=== PATIENT | male | born 1955 | race Caucasian/White ===

== ENCOUNTER 2018-01-10 07:42 | Day surgery (SDC) | payer BC ==
[2018-01-08 10:01] VITALS: BMI 31.6
[~2018-01-10 07:42] MED LIST: HYDROmorphone 0.5 MG/0.5 ML SYRINGE IVP PRN; LACTATED RINGERS 1,000 ML IV SCH; LIDOCAINE 1% 20 ML VIAL (10MG/ML) FOR IV START INTRADERMA PRN
[2018-01-10 08:05] VITALS: RESP 16; TEMP 98.9
[2018-01-10] MEDS ORDERED: PROPOFOL 10 MG/ML 20 ML VIAL IV ONE (08:31)
--- NOTE | 2018-01-10 08:38 | P.GSHP ---
History of Present Illness H&P Date: 01/10/18 Chief Complaint: Colon cancer screening Patient here today for follow-up colonoscopy. Last colonoscopy 5 years ago. History of colon polyps and personal history of colon cancer. No bowel complaints. Past Medical History Past Medical History: Hyperlipidemia, Hypertension Additional Past Medical History / Comment(s): hx. colon polyps History of Any Multi-Drug Resistant Organisms: None Reported Past Surgical History: Bowel Resection Additional Past Surgical History / Comment(s): colonoscopies Past Anesthesia/Blood Transfusion Reactions: No Reported Reaction Smoking Status: Never smoker - Past Family History Mother Family Medical History: Cancer Medications and Allergies Home Medications Medication Instructions Recorded Confirmed Type Atorvastatin [Lipitor] 20 mg PO DAILY 01/08/18 01/10/18 History amLODIPine [Norvasc] 5 mg PO DAILY 01/08/18 01/10/18 History Allergies Allergy/AdvReac Type Severity Reaction Status Date / Time No Known Allergies Allergy Verified 01/10/18 08:05 Surgical - Exam Vital Signs Temp Pulse Resp BP Pulse Ox 98.9 F 90 16 181/93 96 01/10/18 08:04 01/10/18 08:04 01/10/18 08:04 01/10/18 08:04 01/10/18 08:04 Physical exam: General: Well-developed, well-nourished HEENT: Normocephalic, sclerae nonicteric Abdomen: Nontender, nondistended Extremities: No edema Neuro: Alert and oriented Assessment and Plan (1) Colon cancer screening Narrative/Plan: Will proceed with colonoscopy at this time. Current Visit: Yes Status: Acute Code(s): Z12.11 - ENCOUNTER FOR SCREENING FOR MALIGNANT NEOPLASM OF COLON SNOMED Code(s): 285888788
--- NOTE | 2018-01-10 08:54 | P.PCN ---
Date of Procedure: 01/10/18 Procedure(s) Performed: PREOPERATIVE DIAGNOSIS: Colon cancer screening POSTOPERATIVE DIAGNOSIS: Mild diverticulosis PROCEDURE: Colonoscopy ANESTHESIA: MAC SURGEON: Sanjay Hermosillo M.D. SPECIMENS: none ENDOSCOPIC PROCEDURE: The patient was placed on the endoscopy table in the left decubitus position. The Olympus colonoscope was inserted into the anus and passed under direct visualization to the base of the cecum. The appendiceal orifice was visualized. From that point the scope was slowly withdrawn inspecting all surfaces carefully. There were no neoplastic inflammatory or polypoid lesions throughout the cecum, ascending, transverse, descending and rectum. There was mild diverticulosis noted in the left colon. The previous colonic resection anastomosis was widely patent. Digital rectal examination was normal. The patient was taken to the recovery room in stable condition per anesthesia guidelines. RECOMMENDATIONS: Increase fiber. Follow-up colonoscopy 5 years.
[2018-01-10 09:06] VITALS: BP 157/95; PULSE 74
== END 2018-01-10 09:32 | disposition home or self-care (01) ==
LOC: ORWHC2ENDO 07:42
PROVIDERS: ATTEND Surgery
DX: Z12.11 Encounter for screening for malignant neoplasm of colon (principal); K57.30 Diverticulosis of large intestine without perforation or abscess without bleeding; Z90.49 Acquired absence of other specified parts of digestive tract; Z98.0 Intestinal bypass and anastomosis status; Z85.038 Personal history of other malignant neoplasm of large intestine; Z86.010 Personal history of colon polyps; E78.5 Hyperlipidemia, unspecified; I10 Essential (primary) hypertension; Z79.899 Other long term (current) drug therapy
CPT/HCPCS: J2704; G0105; 45378

== ENCOUNTER 2022-01-22 10:29 | Inpatient (IN) | payer BC ==
[2022-01-22] MEDS ORDERED: SODIUM CHLORIDE 0.9% 500 ML 500 ML IV STA (11:04)
[2022-01-22] MEDS ORDERED: KETOROLAC 15 MG/ML 1 ML VIAL IVP STA (11:09)
--- NOTE | 2022-01-22 11:09 | ED ---
SOB HPI - General Chief Complaint: Shortness of Breath Stated Complaint: enlarged heart, lung failure Time Seen by Provider: 01/22/22 10:55 Source: patient, family, RN notes reviewed, old records reviewed Mode of arrival: ambulatory Limitations: no limitations - History of Present Illness Initial Comments: This is a well-appearing 66-year-old male that presents to the emergency room with family with complaints of persistent cough. He did test positive for coronavirus on , 01/18, he was placed on a Z-Spencer. Urgent care told him he has an enlarged heart and recommended he come to the emergency room. He denies any chest pain, no nausea vomiting or diarrhea. He states he has a history of hypertension and is on blood pressure medication. He has been vaccinated against coronavirus. MD Complaint: cough -: days(s) (5) Severity scale (1-10): 0 Context: recent URI (covid + 01/18) Treatments Prior to Arrival: other (cristy, sent by urgent care) - Related Data Home Oxygen Therapy: No Home Medications Medication Instructions Recorded Confirmed Atorvastatin [Lipitor] 20 mg PO HS 01/08/18 01/22/22 Albuterol Sulfate [Proair Hfa] 2 puff INHALATION RT-QID PRN 01/22/22 01/22/22 Azithromycin [Zithromax Z Pack] See Taper PO DAILY 01/22/22 01/22/22 Tamsulosin [Flomax] 0.4 mg PO DAILY 01/22/22 01/22/22 amLODIPine [Norvasc] 10 mg PO HS 01/22/22 01/22/22 hydroCHLOROthiazide 25 mg PO DAILY 01/22/22 01/22/22 Allergies Allergy/AdvReac Type Severity Reaction Status Date / Time No Known Allergies Allergy Verified 01/22/22 10:52 Review of Systems ROS Statement: Those systems with pertinent positive or pertinent negative responses have been documented in the HPI. ROS Other: All systems not noted in ROS Statement are negative. Past Medical History Past Medical History: Hyperlipidemia, Hypertension Additional Past Medical History / Comment(s): hx. colon polyps History of Any Multi-Drug Resistant Organisms: None Reported Past Surgical History: Bowel Resection Additional Past Surgical History / Comment(s): colonoscopies Past Anesthesia/Blood Transfusion Reactions: No Reported Reaction Smoking Status: Never smoker Past Alcohol Use History: None Reported Past Drug Use History: None Reported - Past Family History Mother Family Medical History: Cancer General Exam Limitations: no limitations General appearance: alert Head exam: Present: atraumatic Eye exam: Present: normal appearance Neck exam: Absent: tenderness, meningismus Respiratory exam: Present: normal lung sounds bilaterally, rales. Absent: respiratory distress, wheezes, rhonchi, stridor, chest wall tenderness, accessory muscle use, decreased breath sounds Cardiovascular Exam: Present: regular rate, normal rhythm GI/Abdominal exam: Present: soft Extremities exam: Present: normal capillary refill. Absent: pedal edema Neurological exam: Present: alert, oriented X3 Psychiatric exam: Present: normal affect, normal mood Skin exam: Present: warm, dry, normal color. Absent: cyanosis, diaphoretic, petechiae, pallor Course Vital Signs 01/22/22 01/22/22 01/22/22 10:47 10:57 10:58 Temperature 99.8 F H 99 F Pulse Rate 91 86 Respiratory 20 18 18 Rate Blood Pressure 125/61 121/75 O2 Sat by Pulse 91 L 94 L Oximetry 01/22/22 01/22/22 01/22/22 11:37 12:11 12:18 Temperature Pulse Rate 86 78 Respiratory 18 18 Rate Blood Pressure 110/63 108/72 O2 Sat by Pulse 92 L 90 L Oximetry Medical Decision Making - Medical Decision Making Patient presents with persistent cough after tested positive for coronavirus on , January 18. Patient is currently on a Z-Spencer. Chest x-ray shows mild interstitial edema bilaterally versus chronic parenchymal change. There is a more focal left basilar infiltrate and/or atelectasis n oted. Cardiac silhouette size is upper limits of normal. There is leukocytosis 17 with a left shift. BUN and creatinine are elevated likely related to coronavirus. Patient has no history of kidney disease. Patient denies any chest pain or difficulty breathing. Pulse Ox 87% on room air. He was given 2 g Rocephin in the emergency room. He was admitted to the hospital with pneumonia, COVID-19 and hypoxia. He is agreeable to staying in the hospital. Case discussed with Dr. Santos - Lab Data Result diagrams: 01/22/22 11:07 01/22/22 11:07 Lab Results 01/22/22 01/22/22 01/22/22 Range/Units 11:07 11:07 11:07 WBC 17.2 H (3.8-10.6) k/uL RBC 4.65 (4.30-5.90) m/uL Hgb 13.6 (13.0-17.5) gm/dL Hct 39.4 (39.0-53.0) % MCV 84.8 (80.0-100.0) fL MCH 29.3 (25.0-35.0) pg MCHC 34.6 (31.0-37.0) g/dL RDW 12.9 (11.5-15.5) % Plt Count 311 (150-450) k/uL MPV 8.1 Neutrophils % 89 % Lymphocytes % 4 % Monocytes % 5 % Eosinophils % 1 % Basophils % 0 % Neutrophils # 15.2 H (1.3-7.7) k/uL Lymphocytes # 0.7 L (1.0-4.8) k/uL Monocytes # 0.8 (0-1.0) k/uL Eosinophils # 0.2 (0-0.7) k/uL Basophils # 0.0 (0-0.2) k/uL PT 11.4 (9.0-12.0) sec INR 1.1 (<1.2) APTT 26.0 (22.0-30.0) sec Sodium 131 L (137-145) mmol/L Potassium 4.0 (3.5-5.1) mmol/L Chloride 96 L (98-107) mmol/L Carbon Dioxide 21 L (22-30) mmol/L Anion Gap 14 mmol/L BUN 27 H (9-20) mg/dL Creatinine 1.27 H (0.66-1.25) mg/dL Est GFR (CKD-EPI)AfAm 69 (>60 ml/min/1.73 sqM) Est GFR (CKD-EPI)NonAf 59 (>60 ml/min/1.73 sqM) Glucose 152 H (74-99) mg/dL Calcium 9.4 (8.4-10.2) mg/dL Magnesium 2.0 (1.6-2.3) mg/dL Total Bilirubin 0.9 (0.2-1.3) mg/dL AST 19 (17-59) U/L ALT 19 (4-49) U/L Alkaline Phosphatase 88 (38-126) U/L Total Protein 6.5 (6.3-8.2) g/dL Albumin 3.8 (3.5-5.0) g/dL - EKG Data EKG shows normal: sinus rhythm (Ventricular rate 85, AK interval 0.163, QRS 0.87, QTC 0.391; no ST elevation; normal sinus rhythm) Disposition Clinical Impression: COVID-19, Pneumonia, Hypoxia Disposition: ADMITTED IP TO THIS [facility] Decision Date: 01/22/22 Decision Time: 12:54
[2022-01-22] MEDS ORDERED: ACETAMINOPHEN TAB 325 MG TAB PO STA (11:10)
--- NOTE | 2022-01-22 11:30 | XR ---
EXAMINATION TYPE: XR chest 2V DATE OF EXAM: 01/22/2022 COMPARISON: NONE HISTORY: OLIMPIA. TECHNIQUE: Frontal and lateral views of the chest are obtained. FINDINGS: R a reticular increased markings bilaterally with more focal left basilar opacity. No ple ural effusion or pneumothorax seen bilaterally. The cardiac silhouette size is upper limits of normal . The osseous structures are intact. IMPRESSION: Mild interstitial edema present bilaterally versus chronic parenchymal change. More foca l left basilar infiltrate and/or atelectasis is noted. Correlation with old outside x-ray would be be neficial.
[2022-01-22 11:36] LABS: Basophils % (A) 0 %; Eosinophils # (A) 0.2 k/uL (0-0.7); Eosinophils % (A) 1 %; HCT 39.4 % (39.0-53.0); HGB 13.6 gm/dL (13.0-17.5); Lymphocytes # (A) 0.7 k/uL (1.0-4.8); Lymphocytes % (A) 4 %; MCH 29.3 pg (25.0-35.0); MCHC 34.6 g/dL (31.0-37.0); MCV 84.8 fL (80.0-100.0); Mean Platelet Volume 8.1; Monocytes # (A) 0.8 k/uL (0-1.0); Monocytes % (A) 5 %; Neutrophils # (A) 15.2 k/uL (1.3-7.7); Neutrophils % (A) 89 %; Platelet Count 311 k/uL (150-450); RBC 4.65 m/uL (4.30-5.90); RDW 12.9 % (11.5-15.5); WBC 17.2 k/uL (3.8-10.6)
[2022-01-22 11:37] LABS: Albumin 3.8 g/dL (3.5-5.0); Calcium 9.4 mg/dL (8.4-10.2); Total Bilirubin 0.9 mg/dL (0.2-1.3); Total Protein 6.5 g/dL (6.3-8.2)
[2022-01-22 11:46] LABS: INR 1.1 (<1.2); Prothrombin Time 11.4 sec (9.0-12.0)
[2022-01-22] MEDS ORDERED: DEXAMETHASONE SOD PHOSPHATE 10 MG/ML 1 ML VIAL IVP STA (11:50)
[2022-01-22] MEDS ORDERED: ACETAMINOPHEN TAB 325 MG TAB PO PRN (12:55)
[2022-01-22] MEDS ORDERED: NALOXONE 0.4 MG/ML 1 ML VIAL IV PRN (12:55)
[2022-01-22] MEDS ORDERED: ALBUTEROL NEBULIZED 2.5 MG/3 ML INHALATION PRN (12:55)
--- NOTE | 2022-01-22 15:25 | P.CNPUL ---
History of Present Illness Consult date: 01/22/22 Requesting physician: Giovanni Stewart Reason for consult: dyspnea, cough, hypoxemia, pneumonia, abnormal CXR/CT Chief complaint: Coronavirus infection and possible coronavirus pneumonia. History of present illness: Pulmonary consult dated 01/22/2022. 66-year-old male, who presented to the emergency department, sent in by his family doctor, because of cold like symptoms. The patient apparently started not feeling well on . At that time, he tested himself, with a home coronavirus test kit, and apparently tested positive. The patient apparently continued to get worse, and went back into the clinic to be seen, and was directed into the emergency department. He was told that he had an enlarged heart, fluid on the lungs, and possible pneumonia. Currently, he's not receiving any IV fluids. He is receiving oxygen at 3 L. He has a history of hypertension, and hyperlipidemia. He is a lifelong nontobacco user, and has no prior history of any lung disease. He did receive initial Pfizer vaccination, but no booster. He apparently was initially given a Z-Spencer, when he was seen at the clinic. He denies any fever or chills. He denies any chest pain or chest discomfort. He looks relatively comfortable to me. White count 17.2, with a normal hemoglobin, hematocrit, and platelet count. Coagulation studies are normal. Sodium 131, potassium 4, chlorides 96, CO2 21, anion gap 14, BUN 27, and creatinine 1.27. His coronavirus testing here in the hospital was negative. Chest x-ray is not overly impressive, and there may be some mild pulmonary vascular changes. In addition, there may be a minimal left mid lung infiltrate. Review of Systems REVIEW OF SYSTEMS: CONSTITUTIONAL: [Negative.] NEUROLOGIC: [ Negative.] HEENT: Stuffy nose. CARDIAC: [Negative.] PULMONARY: Minimal shortness of breath, and nonproductive cough. GI: [Negative.] : [Negative.] RHEUMATOLOGIC: [ Negative.] IMMUNOLOGIC: [ Negative.] ENDOCRINE: [Negative. ] DERMATOLOGIC: [Negative.] Past Medical History Past Medical History: Hyperlipidemia, Hypertension, Osteoarthritis (OA) Additional Past Medical History / Comment(s): hx. colon polyps History of Any Multi-Drug Resistant Organisms: None Reported Past Surgical History: Bowel Resection Additional Past Surgical History / Comment(s): polyp removal and colonoscopies Past Anesthesia/Blood Transfusion Reactions: No Reported Reaction Past Psychological History: No Psychological Hx Reported Smoking Status: Never smoker Past Alcohol Use History: None Reported Past Drug Use History: None Reported - Past Family History Mother Family Medical History: Cancer Additional Family Medical History / Comment(s): Non Hodgkin Lymphoma then s/p chemo developed heart valve disease and at age 76 Father Family Medical History: No Reported History Additional Family Medical History / Comment(s): history of skin cancer. currently living at age 87 Medications and Allergies Home Medications Medication Instructions Recorded Confirmed Type Atorvastatin [Lipitor] 20 mg PO HS 01/08/18 01/22/22 History Albuterol Sulfate [Proair Hfa] 2 puff INHALATION RT-QID PRN 01/22/22 01/22/22 History Azithromycin [Zithromax Z Pack] See Taper PO DAILY 01/22/22 01/22/22 History Tamsulosin [Flomax] 0.4 mg PO DAILY 01/22/22 01/22/22 History amLODIPine [Norvasc] 10 mg PO HS 01/22/22 01/22/22 History hydroCHLOROthiazide 25 mg PO DAILY 01/22/22 01/22/22 History Allergies Allergy/AdvReac Type Severity Reaction Status Date / Time No Known Allergies Allergy Verified 01/22/22 10:52 Physical Exam Osteopathic Statement: *. No significant issues noted on an osteopathic structural exam other than those noted in the History and Physical/Consult. Vitals: Vital Signs Temp Pulse Pulse Resp BP BP Pulse Ox 01/22/22 14:12 76 18 94 L 01/22/22 14:05 98.3 F 73 18 103/65 93 L 01/22/22 14:00 98.0 F 65 16 110/57 94 L 01/22/22 12:18 90 L 01/22/22 12:11 78 18 108/72 01/22/22 11:37 86 18 110/63 92 L 01/22/22 10:58 18 01/22/22 10:57 99 F 86 18 121/75 94 L 01/22/22 10:47 99.8 F H 91 20 125/61 91 L Intake and Output 01/22/22 01/22/22 01/22/22 06:59 14:59 22:59 Other: Weight 88.451 kg 88.451 kg No acute distress, oriented 3. No use of accessory muscles or conversational dyspnea. Currently on 3 L. HEENT examination is grossly unremarkable. Neck supple. Full range of motion. No adenopathy thyromegaly or neck vein distention. Cardiovascular examination reveals regular rhythm rate. S1-S2 normal. No S3 or S4. No discernible murmur noted. Heart rate is 76 bpm. Lungs reveal mostly clear breath sounds. Minimal scattered rhonchi. No distinct crackles or wheezes. Breath sounds equal bilaterally. 3 L saturation 94%and room air saturation is 90%. Abdomen soft bowel sounds are heard. No masses or tenderness. Extremities are intact. No cyanosis clubbing or edema. Skin is without rash or lesion. Neurologic examination is brief but nonfocal. Results - Laboratory Findings CBC and BMP: 01/22/22 11:07 01/22/22 11:07 PT/INR, D-dimer PT 11.4 sec (9.0-12.0) 01/22/22 11:07 INR 1.1 (<1.2) 01/22/22 11:07 Abnormal lab findings: Abnormal Labs 01/22/22 01/22/22 11:07 11:07 WBC 17.2 H Neutrophils # 15.2 H Lymphocytes # 0.7 L Sodium 131 L Chloride 96 L Carbon Dioxide 21 L BUN 27 H Creatinine 1.27 H Glucose 152 H - Diagnostic Findings Chest x-ray: image reviewed Assessment and Plan Assessment: Shortness of breath, of unclear etiology. Patient tested negative for coronavirus, here at this hospital. He states his home test was positive on , January 18. Possible pneumonia, left midlung. Rule out mild interstitial edema. Mild hyponatremia. History of hyperlipidemia. History of hypertension. Lifelong nontobacco user. Plan: Plan dated 01/22/2022. The patient will have a pro-calcitonin level checked, as well as a N-terminal proBNP. Labs, x-rays, and medications are reviewed. Additional recommendations and suggestions are forthcoming. We will continue to follow the patient and make recommendations along the way. Patient does not appear to be having much in the way of respiratory difficulty or distress. He has no prior history of any lung issues. Time with Patient: Greater than 30
[2022-01-22] MEDS: amLODIPine 10 MG TAB PO SCH (19:34)
[2022-01-22] MEDS: ATORVASTATIN 20 MG TAB PO SCH (19:34)
--- NOTE | 2022-01-23 03:51 | HP ---
HISTORY AND PHYSICAL CHIEF COMPLAINT: Shortness of breath. HISTORY OF PRESENT ILLNESS: This 66-year-old gentleman with a past medical history of multiple history of multiple medical issues, hypertension, hyperlipidemia, was complaining of shortness of breath and cough for the past several days. Patient has previously taken the COVID vaccine. The patient came to [facility] and the patient was admitted for suspicion of pneumonia. There is no history of any headache, loss of consciousness, or seizures. PAST MEDICAL HISTORY: Reviewed, include hypertension and hyperlipidemia. HOME MEDICATIONS: Reviewed include Flomax, doses and rest of medications noted. ALLERGIES: None. FAMILY HISTORY: Reviewed, cancer. SOCIAL HISTORY: No history of smoking, no history of alcohol. REVIEW OF SYSTEMS: A 14-point review is negative as mentioned. PHYSICAL EXAMINATION: VITAL SIGNS: Pulse is 73, blood pressure 103/60, and respirations 18. HEENT: Conjunctivae normal. NECK: No jugular venous distention. RESPIRATIONS: Breath sounds diminished at the basis, few scattered rhonchi and crackles. ABDOMEN: Soft, nontender. LEGS: No edema, no swelling. SKIN: No ulcer, rash, bleeding. JOINTS: No active deforming arthropathy. LABS: Reviewed. X-ray reviewed personally. ASSESSMENT: 1. Acute COVID-19, left lower lobe pneumonia possibly. 2. Hypertension. 3. Hyperlipidemia. 4. History of degenerative joint disease. RECOMMENDATIONS: This 66-year-old gentleman presented with multiple complex medical issues, will monitor the patient closely. Continue with the current medications, empiric antibiotics initiated. Otherwise, bronchodilators. I would also initiate steroids and repeat labs. Guarded prognosis. Further recommendations to follow. See orders for details. MMODL / IJN: [id number] /
[2022-01-23] MEDS: TAMSULOSIN 0.4 MG CAP.ER.24H PO SCH (08:27)
[2022-01-23] MEDS: AZITHROMYCIN 500 MG TAB PO SCH (08:28)
[2022-01-23] MEDS: hydroCHLOROthiazide 25 MG TAB PO SCH (08:28)
[2022-01-23] MEDS ORDERED: DEXAMETHASONE SOD PHOSPHATE 10 MG/ML 1 ML VIAL IVP SCH (09:00)
[2022-01-23 10:38] LABS: HCT 38.5 % (39.6-50.0); HGB 13.3 g/dL (13.0-17.0); MCHC 34.5 g/dL (32.0-37.0); MCV 84.1 fL (80.0-97.0); NRBC Per 100 WBC 0 /100 WBCS (0.0-0.0); Platelet Count 355 X 10*3/uL (140-440); RBC 4.58 X 10*6/uL (4.40-5.60); WBC 28.56 X 10*3/uL (4.50-10.00)
[2022-01-23 11:11] LABS: African American GFR (CKD) 94.8 (60.0-200.0); Anion Gap 11.4 mmol/L (10.00-18.00); BUN/Creat Ratio 26.9 Ratio (12.00-20.00); Blood Urea Nitrogen 26.2 mg/dL (9.0-27.0); Calcium 9.1 mg/dL (8.7-10.3); Carbon Dioxide 24.1 mmol/L (20.0-27.5); Non-African American GFR(CKD) 81.8 (60.0-200.0); Potassium 4.1 mmol/L (3.5-5.5)
[2022-01-23 11:39] LABS: Basophils # (A) 0.04 X 10*3/uL (0.00-0.10); Basophils % (A) 0.1 %; Eosinophils # (A) 0 X 10*3/uL (0.04-0.35); Eosinophils % (A) 0 %; Immature Grans, Automated 0.7 %; Lymphocytes # (A) 0.78 X 10*3/uL (0.90-5.00); Lymphocytes % (A) 2.7 %; Monocytes # (A) 1.83 X 10*3/uL (0.20-1.00); Monocytes % (A) 6.4 %; Neutrophils % (A) 90.1 %
[2022-01-23 11:40] LABS: RBC Morphology NORMAL
--- NOTE | 2022-01-23 13:55 | P.PN ---
Subjective Progress Note Date: 01/23/22 66-year-old male, who presented to the emergency department, sent in by his family doctor, because of cold like symptoms. The patient apparently started not feeling well on . At that time, he tested himself, with a home coronavirus test kit, and apparently tested positive. The patient apparently continued to get worse, and went back into the clinic to be seen, and was directed into the emergency department. He was told that he had an enlarged heart, fluid on the lungs, and possible pneumonia. Currently, he's not receiving any IV fluids. He is receiving oxygen at 3 L. He has a history of hypertension, and hyperlipidemia. He is a lifelong nontobacco user, and has no prior history of any lung disease. He did receive initial Pfizer vaccination, but no booster. He apparently was initially given a Z-Spencer, when he was seen at the clinic. He denies any fever or chills. He denies any chest pain or chest discomfort. He looks relatively comfortable to me. White count 17.2, with a n ormal hemoglobin, hematocrit, and platelet count. Coagulation studies are normal. Sodium 131, potassium 4, chlorides 96, CO2 21, anion gap 14, BUN 27, and creatinine 1.27. His coronavirus testing here in the hospital was negative. Chest x-ray is not overly impressive, and there may be some mild pulmonary vascular changes. In addition, there may be a minimal left mid lung infiltrate. The patient is seen today 01/23/2022 in follow-up on the regular medical floor. He is currently sitting up in bed. Awake and alert in no acute distress. He is maintaining good O2 saturations in the 90s on 3 L/m per nasal cannula. His pro calcitonin level was 0.22. He remains on ceftriaxone and azithromycin. Remains on Decadron and bronchodilators. White count 28.5. Hemoglobin 13.3. Sodium 135. Potassium 4.1. BUN 26. Creatinine 1.0. Glucose 154. Coronavirus by PCR not detected. Objective - Vital Signs Vital signs: Vital Signs Temp 98.5 F 01/23/22 08:00 Pulse 79 01/23/22 08:00 Resp 18 01/23/22 08:00 BP 130/72 01/23/22 08:00 Pulse Ox 90 L 01/23/22 08:00 FiO2 Intake & Output 01/22/22 01/23/22 01/23/22 18:59 06:59 18:59 Intake Total 200 Balance 200 Weight 88.451 kg Intake: Oral 200 Other: Voiding Method Toilet Toilet # Voids 1 1 # Bowel Movements 0 - Exam GENERAL EXAM: Alert, 66-year-old male, on 3 L nasal cannula, comfortable in no apparent distress. HEAD: Normocephalic. EYES: Normal reaction of pupils, equal size. NOSE: Clear with pink turbinates. THROAT: No erythema or exudates. NECK: No masses, no JVD. CHEST: No chest wall deformity. LUNGS: Equal air entry with crackles left base. CVS: S1 and S2 normal with no audible murmur, regular rhythm. ABDOMEN: No hepatosplenomegaly, normal bowel sounds, no guarding or rigidity. SPINE: No scoliosis or deformity SKIN: No rashes CENTRAL NERVOUS SYSTEM: No focal deficits, tone is normal in all 4 extremities. EXTREMITIES: There is no peripheral edema. No clubbing, no cyanosis. Peripheral pulses are intact. - Labs CBC & Chem 7: 01/23/22 07:00 01/23/22 07:00 Labs: Abnormal Lab Results - Last 24 Hours (Table) 01/22/22 01/23/22 01/23/22 Range/Units 16:17 07:00 07:00 WBC 28.56 H (4.50-10.00) X 10*3/uL Hct 38.5 L (39.6-50.0) % Immature Gran # 0.21 H (0.00-0.04) X 10*3/uL Neutrophils # 25.70 H (1.80-7.70) X 10*3/uL Lymphocytes # 0.78 L (0.90-5.00) X 10*3/uL Monocytes # 1.83 H (0.20-1.00) X 10*3/uL Eosinophils # 0 L (0.04-0.35) X 10*3/uL BUN/Creatinine Ratio 26.90 H (12.00-20.00) Ratio Glucose 154 H (70-110) mg/dL Procalcitonin 0.22 H (0.02-0.09) ng/mL Assessment and Plan Assessment: Shortness of breath, of unclear etiology. Patient tested negative for coronavirus, here at this hospital. He states his home test was positive on January 18. Acute hypoxemic respiratory failure secondary to suspected pneumonia, left midlung. Rule out mild interstitial edema. Pro-calcitonin 0.22 Mild hyponatremia. History of hyperlipidemia. History of hypertension. Lifelong nontobacco user. Plan: The patient was seen and evaluated Labs and medications reviewed Remains on ceftriaxone and azithromycin Titrate the FiO2 as tolerated Decadron discontinued Continue albuterol as needed Probable discharge in the a.m. We will continue to follow I have personally seen and examined the patient, performed the documentation and the assessment and plan as written. Number of minutes spent on the visit: 10.
--- NOTE | 2022-01-23 14:50 | CDI ---
Documentation Clarification Form Date: 01/23/2022 02:41:27 PM From: Kyra BullStonerPRISCA saini, CCDS Admit Date: 01/22/2022 12:58:00 PM Patient Name: Dustin Olguin Visit Number: [id number] Discharge Date: ATTENTION: The Clinical Documentation Specialists (CDI) and [facility] Coding Staff appreciate your assistance in clarifying documentation. Please respond to the clarification below the line at the bottom and electronically sign. The CDI & [facility] Coding staff will review the response and follow-up if needed. Please note: Queries are made part of the Legal Health Record. If you have any questions, please contact the author of this message via ITS. Dr. Giovanni Stewart: The Hospital COVID-19 test obtained on 01/22 was reported as Negative. The patient presented to the ED with SOB and cough, per the patient, he took a home COVID test on 01/18 that was positive. History/risk factors per the 01/22 H/P: Hypertension, Hyperlipidemia, DJD, Former smoker. Clinical Indicators: Presented to the ED from an urgent care facility, referred for an enlarged heart. Has had SOB, persistent cough. Admit with Pneumonia, COVID 19 and Hypoxia. 01/22 VS: T 99.8, P 91, R 20, 18 (sob); BP 125/61, PO 91 RA, BMI: 31.5 01/22 LAB: WBC 17.2, Neutrophils 15.2, Lymphocytes 0.7; Na 131, Chloride 96, CO2 21, BUN 27, Creatinine 1.27, Glucose 152, Procalcitonin 0.22 COVID: not detected. 01/22 RAD: CXR: Mild interstitial edema present bilaterally versus chronic parenchymal change. More focal left basilar infiltrate and/or atelectasis is noted. Correlation with old outside x-ray would be beneficial. Treatment 01/22: Blood cultures, Pulmonary Consult, O2 2Lnc, IV Na Chloride 500 mls @ 999 mls/hr 31M, IV Toradol 15 mg x1, po Tylenol 650 mg x1, IV Decadron 10 mg x1, IV Rocephin 50 mls @ 100 mls/hr x1, INH Ventolin QID. Please clarify the COVID-19 status: [ ] False negative, treating for COVID-19 infection [ ] COVID-19 ruled out [ ] Other, please specify (Template Last Revised: June 2020) False negative, treating for COVID-19 infection [facility]
[2022-01-23] MEDS: amLODIPine 10 MG TAB PO SCH (19:37)
[2022-01-23] MEDS: ATORVASTATIN 20 MG TAB PO SCH (19:37)
--- NOTE | 2022-01-23 23:18 | P.CONS ---
History of Present Illness - Reason for Consult Consult date: 01/23/22 - History of Present Illness Patient is a 66-year male presenting to the hospital for evaluation of increasing shortness of breath and this patient symptom has been going on for about a week apparently the patient did tested positive for COVID-19 on , 01/18/2022 and the patient was treated on Z-Spencer however the patient did not have any improvement in his symptoms on presentation to the hospital he did have low-grade fever of 99.8 F and subsequently did have a low-grade fever of 100 This afternoon patient was hypoxic currently on 3 L nasal cannula patient did have white count of 17.2 on admission was up to 28.6 today he did have elevated BUN/creatinine which subsequently has normalized patient did have negative COVID testing blood cultures obtained which are currently pending patient did have a chest x-ray with evidence of mild interstitial edema versus bilateral infiltrate patient was started on Rocephin and Zithromax infectious disease was consulted for further management of antibiotic therapy patient did mention improvement in his symptoms also started on antibiotics he continued to have a cough which is moderate intensity however not bringing up any sputum. Denies any pleuritic chest pain denies any nausea no vomiting no abdominal pain and no diarrhea Past Medical History Past Medical History: Hyperlipidemia, Hypertension, Osteoarthritis (OA) Additional Past Medical History / Comment(s): hx. colon polyps History of Any Multi-Drug Resistant Organisms: None Reported Past Surgical History: Bowel Resection Additional Past Surgical History / Comment(s): polyp removal and colonoscopies Past Anesthesia/Blood Transfusion Reactions: No Reported Reaction Past Psychological History: No Psychological Hx Reported Smoking Status: Never smoker Past Alcohol Use History: None Reported Past Drug Use History: None Reported - Past Family History Mother Family Medical History: Cancer Additional Family Medical History / Comment(s): Non Hodgkin Lymphoma then s/p chemo developed heart valve disease and at age 76 Father Family Medical History: No Reported History Additional Family Medical History / Comment(s): history of skin cancer. currently living at age 87 Medications and Allergies Home Medications Medication Instructions Recorded Confirmed Type Atorvastatin [Lipitor] 20 mg PO HS 01/08/18 01/22/22 History Albuterol Sulfate [Proair Hfa] 2 puff INHALATION RT-QID PRN 01/22/22 01/22/22 History Azithromycin [Zithromax Z Pack] See Taper PO DAILY 01/22/22 01/22/22 History Tamsulosin [Flomax] 0.4 mg PO DAILY 01/22/22 01/22/22 History amLODIPine [Norvasc] 10 mg PO HS 01/22/22 01/22/22 History hydroCHLOROthiazide 25 mg PO DAILY 01/22/22 01/22/22 History Allergies Allergy/AdvReac Type Severity Reaction Status Date / Time No Known Allergies Allergy Verified 01/22/22 10:52 Physical Exam Vitals: Vital Signs Temp Pulse Resp BP Pulse Ox 01/23/22 18:14 99.4 F 82 16 129/66 90 L 01/23/22 14:00 100.0 F H 89 22 120/67 92 L 01/23/22 08:00 98.5 F 79 18 130/72 90 L 01/23/22 01:21 98.7 F 82 17 133/76 92 L 01/22/22 19:38 71 16 01/22/22 19:30 97.9 F 71 16 120/65 93 L Intake and Output 01/23/22 01/23/22 01/23/22 06:59 14:59 22:59 Intake Total 200 Balance 200 Intake: Oral 200 Other: Voiding Method Toilet # Voids 1 2 # Bowel Movements 0 Results CBC & Chem 7: 01/23/22 07:00 01/23/22 07:00 Labs: Abnormal Lab Results - Last 24 Hours (Table) 01/22/22 01/23/22 01/23/22 Range/Units 16:17 07:00 07:00 WBC 28.56 H (4.50-10.00) X 10*3/uL Hct 38.5 L (39.6-50.0) % Immature Gran # 0.21 H (0.00-0.04) X 10*3/uL Neutrophils # 25.70 H (1.80-7.70) X 10*3/uL Lymphocytes # 0.78 L (0.90-5.00) X 10*3/uL Monocytes # 1.83 H (0.20-1.00) X 10*3/uL Eosinophils # 0 L (0.04-0.35) X 10*3/uL BUN/Creatinine Ratio 26.90 H (12.00-20.00) Ratio Glucose 154 H (70-110) mg/dL Procalcitonin 0.22 H (0.02-0.09) ng/mL Microbiology - Last 24 Hours (Table) 01/22/22 13:53 Blood Culture - Preliminary Blood No Growth after 24 hours 01/22/22 13:53 Blood Culture - Preliminary Blood No Growth after 24 hours Assessment and Plan Plan: patient presented to hospital with increasing shortness of breath cough mod erate intensity with evidence of left-sided pneumonia possibly community- acquired in this patient seem to have shown some clinical improvement with Rocephin and Zithromax. 2we will obtain a sputum for gram stain and culture 3continue Rocephin and Zithromax We will follow on clinical condition and cultures to further adjust medication if needed Thank you for this consultation will follow this patient along with you Time with Patient: Greater than 30
[2022-01-24] MEDS: hydroCHLOROthiazide 25 MG TAB PO SCH (07:17)
[2022-01-24] MEDS: TAMSULOSIN 0.4 MG CAP.ER.24H PO SCH (07:18)
[2022-01-24] MEDS: AZITHROMYCIN 500 MG TAB PO SCH (07:19)
[2022-01-24 10:41] LABS: Basophils # (A) 0.04 X 10*3/uL (0.00-0.10); Basophils % (A) 0.2 %; Eosinophils # (A) 0 X 10*3/uL (0.04-0.35); Eosinophils % (A) 0 %; HCT 38.9 % (39.6-50.0); HGB 13.4 g/dL (13.0-17.0); Immature Grans, Automated 1.2 %; Lymphocytes # (A) 1.02 X 10*3/uL (0.90-5.00); Lymphocytes % (A) 4.1 %; MCH 28.5 pg (27.0-32.0); MCHC 34.4 g/dL (32.0-37.0); MCV 82.6 fL (80.0-97.0); Mean Platelet Volume 10.1 fL (9.5-12.2); Monocytes # (A) 1.56 X 10*3/uL (0.20-1.00); Monocytes % (A) 6.3 %; NRBC Per 100 WBC 0 /100 WBCS (0.0-0.0); Neutrophils # (A) 21.86 X 10*3/uL (1.80-7.70); Neutrophils % (A) 88.2 %; Platelet Count 415 X 10*3/uL (140-440); RBC 4.71 X 10*6/uL (4.40-5.60); RDW 13.2 % (11.5-14.5); WBC 24.78 X 10*3/uL (4.50-10.00)
[2022-01-24 11:19] LABS: African American GFR (CKD) 91.8 (60.0-200.0); Albumin 3.5 g/dL (3.8-4.9); Albumin/Globulin Ratio 1.4 (1.60-3.17); Anion Gap 11.9 mmol/L (10.00-18.00); BUN/Creat Ratio 28.3 Ratio (12.00-20.00); Blood Urea Nitrogen 28.3 mg/dL (9.0-27.0); Calcium 9.2 mg/dL (8.7-10.3); Carbon Dioxide 24.1 mmol/L (20.0-27.5); Globulin 2.5 g/dL (1.6-3.3); Non-African American GFR(CKD) 79.2 (60.0-200.0); Potassium 4.2 mmol/L (3.5-5.5); Total Bilirubin 0.3 mg/dL (0.30-1.20)
--- NOTE | 2022-01-24 13:04 | P.PN ---
Subjective Progress Note Date: 01/24/22 66-year-old male, who presented to the emergency department, sent in by his family doctor, because of cold like symptoms. The patient apparently started not feeling well on . At that time, he tested himself, with a home coronavirus test kit, and apparently tested positive. The patient apparently continued to get worse, and went back into the clinic to be seen, and was directed into the emergency department. He was told that he had an enlarged heart, fluid on the lungs, and possible pneumonia. Currently, he's not receiving any IV fluids. He is receiving oxygen at 3 L. He has a history of hypertension, and hyperlipidemia. He is a lifelong nontobacco user, and has no prior history of any lung disease. He did receive initial Pfizer vaccination, but no booster. He apparently was initially given a Z-Spencer, when he was seen at the clinic. He denies any fever or chills. He denies any chest pain or chest discomfort. He looks relatively comfortable to me. White count 17.2, with a n ormal hemoglobin, hematocrit, and platelet count. Coagulation studies are normal. Sodium 131, potassium 4, chlorides 96, CO2 21, anion gap 14, BUN 27, and creatinine 1.27. His coronavirus testing here in the hospital was negative. Chest x-ray is not overly impressive, and there may be some mild pulmonary vascular changes. In addition, there may be a minimal left mid lung infiltrate. The patient is seen today 01/23/2022 in follow-up on the regular medical floor. He is currently sitting up in bed. Awake and alert in no acute distress. He is maintaining good O2 saturations in the 90s on 3 L/m per nasal cannula. His pro calcitonin level was 0.22. He remains on ceftriaxone and azithromycin. Remains on Decadron and bronchodilators. White count 28.5. Hemoglobin 13.3. Sodium 135. Potassium 4.1. BUN 26. Creatinine 1.0. Glucose 154. Coronavirus by PCR not detected. The patient is seen today 01/24/2022 in follow-up on the regular medical floor. He is resting comfortably in bed. Maintaining O2 saturations in the low 90s on room air. He's afebrile. Hemodynamically stable. Blood cultures reveal no growth. Sputum culture reveals no growth. White count 24.7. Hemoglobin 13.4. Sodium 136. Potassium 4.2. BUN 28. Creatinine 1.0. Pro calcitonin 0.22. He remains on ceftriaxone and azithromycin. Objective - Vital Signs Vital signs: Vital Signs Temp 98.2 F 01/24/22 08:00 Pulse 79 01/24/22 08:00 Resp 18 01/24/22 08:00 BP 127/67 01/24/22 08:00 Pulse Ox 90 L 01/24/22 10:09 FiO2 Intake & Output 01/23/22 01/24/22 01/24/22 18:59 06:59 18:59 Other: Voiding Method Toilet Toilet Toilet # Voids 2 0 - Exam GENERAL EXAM: Alert, 66-year-old male, on room air, comfortable in no apparent distress. HEAD: Normocephalic. EYES: Normal reaction of pupils, equal size. NOSE: Clear with pink turbinates. THROAT: No erythema or exudates. NECK: No masses, no JVD. CHEST: No chest wall deformity. LUNGS: Equal air entry with crackles left base. CVS: S1 and S2 normal with no audible murmur, regular rhythm. ABDOMEN: No hepatosplenomegaly, normal bowel sounds, no guarding or rigidity. SPINE: No scoliosis or deformity SKIN: No rashes CENTRAL NERVOUS SYSTEM: No focal deficits, tone is normal in all 4 extremities. EXTREMITIES: There is no peripheral edema. No clubbing, no cyanosis. Peripheral pulses are intact. - Labs CBC & Chem 7: 01/24/22 07:35 01/24/22 07:35 Labs: Abnormal Lab Results - Last 24 Hours (Table) 01/24/22 01/24/22 Range/Units 07:35 07:35 WBC 24.78 H (4.50-10.00) X 10*3/uL Hct 38.9 L (39.6-50.0) % Immature Gran # 0.30 H (0.00-0.04) X 10*3/uL Neutrophils # 21.86 H (1.80-7.70) X 10*3/uL Monocytes # 1.56 H (0.20-1.00) X 10*3/uL Eosinophils # 0 L (0.04-0.35) X 10*3/uL BUN 28.3 H (9.0-27.0) mg/dL BUN/Creatinine Ratio 28.30 H (12.00-20.00) Ratio Glucose 139 H (70-110) mg/dL AST 13 L (14-35) U/L Total Protein 6.0 L (6.2-8.2) g/dL Albumin 3.5 L (3.8-4.9) g/dL Albumin/Globulin Ratio 1.40 L (1.60-3.17) g/dL Microbiology - Last 24 Hours (Table) 01/23/22 21:40 Gram Stain - Preliminary Sputum Sputum Culture - Preliminary 01/22/22 13:53 Blood Culture - Preliminary Blood No Growth after 24 hours 01/22/22 13:53 Blood Culture - Preliminary Blood No Growth after 24 hours Assessment and Plan Assessment: Shortness of breath, of unclear etiology. Patient tested negative for coronavirus, here at this hospital. He states his home test was positive on , January 18. Acute hypoxemic respiratory failure secondary to suspected pneumonia, left midlung. Rule out mild interstitial edema. Pro-calcitonin 0.22 Mild hyponatremia. History of hyperlipidemia. History of hypertension. Lifelong nontobacco user. Plan: The patient was seen and evaluated Labs and medications reviewed Remains on ceftriaxone and azithromycin Stable on room air Cleared for discharge from the pulmonary standpoint I have personally seen and examined the patient, performed the documentation and the assessment and plan as written. Number of minutes spent on the visit: 10.
--- NOTE | 2022-01-24 13:44 | P.EN ---
Patient will require 2 L of oxygen via nasal cannula along with DuoNeb treatments 4 times a day and when necessary and will require a nebulizer on discharge to manage COPD. Prescriptions provided to case management to arrange for discharge planning.
[2022-01-24 15:45] VITALS: BP 121/68; PULSE 71; RESP 16; TEMP 98.6
--- NOTE | 2022-01-24 20:23 | PN ---
PROGRESS NOTE This 66-year-old gentleman who was admitted with acute COVID-19 infection also had a possibility of pneumonia. The patient being closely monitored. Patient had hypoxia on admission. No chest pain. No palpitation. PHYSICAL EXAMINATION: VITAL SIGNS: Pulse is 89, blood pressure 110/67, respirations 20, temperature 100 degrees. HEENT: Conjunctivae normal. CARDIOVASCULAR: S1, S2. RESPIRATION: Few scattered rhonchi. ABDOMEN: Soft. NERVOUS SYSTEM: Nonfocal. LABORATORY DATA: WBC 28.5 and procalcitonin 0.22. ASSESSMENT: 1. Acute COVID-19 with left lower lobe pneumonia possibly with continued fever. 2. Hypertension. 3. Hyperlipidemia. 4. History of degenerative joint disease. RECOMMENDATIONS: I recommend to continue current management and symptomatic treatment. Serum procalcitonin is elevated. I would recommend to continue current medications. The patient is on empiric antibiotics. The patient received 1 dose of dexamethasone. I would also recommend infectious disease evaluation. Also guarded prognosis. Further recommendations to follow. MMODL / IJN: [id number] /
--- NOTE | 2022-01-25 14:14 | P.DS ---
Providers Date of admission: 01/22/22 12:58 Expected date of discharge: 01/24/22 Attending physician: Giovanni Stewart Consults: 01/22/22 13:37 Consult Physician Stat Consulting Provider: Florencio Wiseman Consult Reason/Comments: hypoxia, pneumonia, covid Do you want consulting provider notified?: Yes, Notify in am 01/23/22 15:35 Consult Physician Routine Consulting Provider: Toñito James Consult Reason/Comments: fever Do you want consulting provider notified?: Yes Primary care physician: Vinita Nicholson Hospital Course: Final diagnosis False-negative COVID-19 test results, treating for COVID-19 infection Acute COVID-19 infection with left lower lobe pneumonia with continued fever Hypertension Hyperlipidemia History of degenerative joint disease full code Discharge disposition Patient is being discharged in a stable condition with guarded prognosis to home. Patient will follow-up with Dr. Nicholson in the outpatient setting upon discharge. Patient is to continue with medications as prescribed below along with pulmonary follow-up in the outpatient setting.. Patient will continue on a short course of oral antibiotics on discharge as well. Total time taken is greater than 35 minutes. Hospital course This is a 66-year-old male who was recently admitted with acute COVID-19 infection also pneumonia and was being closely monitored. Patient also had hypoxia and will be requiring oxygen at 2 L via nasal cannula on discharge. Patient also to continue with vitamin and zinc supplements along with inhalers on discharge and will be continued on DuoNeb treatments 4 times a day to manage COPD. Case management arranging for a nebulizer along with oxygen on discharge. Patient encouraged to follow-up with primary care provider this week and continue his medications as prescribed. Recommend close outpatient follow-up with pulmonary as well. Currently no reports of chest pain, worsening shortness of breath, or palpitations. Patient is afebrile. No reports of nausea or vomiting and patient is tolerating diet. Patient will be discharged home today. Guarded prognosis. Physical exam: Gen: This is a 66-year-old male awake, alert and oriented 3, well-developed, well-nourished. HEENT: Head is atraumatic, normocephalic. Pupils equal, round. Sclerae is anicteric. NECK: Supple. No JVD. No lymphadenopathy. No thyromegaly. LUNGS: Diminished breath sounds bilaterally with some scattered rhonchi noted area did No intercostal retractions. HEART: S1, S2 are muffled ABDOMEN: Soft. Bowel sounds are present. No masses. No tenderness. EXTREMITIES: No pedal edema. No calf tenderness. NEUROLOGICAL: Patient is awake, alert and oriented x3. Cranial nerves 2 through 12 are grossly intact. Please refer to medication reconciliation sheet for a list of medications. The impression and plan of care has been dictated by Brooke Resendiz, Nurse Practitioner as directed. Dr. Terry MD I have performed a history and examination and MDM of this patient, discussed the same with the dictator, and agree with the dictator's assessment and plan as written ,documented as a scribe. Based on total visit time, I have performed more than 50% of the visit. Patient Condition at Discharge: Fair Plan - Discharge Summary Discharge Rx Participant: No New Discharge Prescriptions: New Acetaminophen Tab [Tylenol] 650 mg PO Q6HR PRN tab PRN Reason: Mild Pain Or Fever > 100.5 cefUROXime axetiL [Ceftin] 500 mg PO BID 5 Days #10 tab Ipratropium-Albuterol Nebulize [Duoneb 0.5 mg-3 mg/3 ml Soln] 3 ml INHALATION QID #360 ml Azithromycin [Zithromax] 500 mg PO DAILY 5 Days #5 tab Continue Atorvastatin [Lipitor] 20 mg PO HS amLODIPine [Norvasc] 10 mg PO HS Tamsulosin [Flomax] 0.4 mg PO DAILY hydroCHLOROthiazide 25 mg PO DAILY Albuterol Sulfate [Proair Hfa] 2 puff INHALATION RT-QID PRN PRN Reason: Shortness Of Breath Discontinued Azithromycin [Zithromax Z Pack] See Taper PO DAILY Discharge Medication List Atorvastatin [Lipitor] 20 mg PO HS 01/08/18 [History] Albuterol Sulfate [Proair Hfa] 2 puff INHALATION RT-QID PRN 01/22/22 [History] Tamsulosin [Flomax] 0.4 mg PO DAILY 01/22/22 [History] amLODIPine [Norvasc] 10 mg PO HS 01/22/22 [History] hydroCHLOROthiazide 25 mg PO DAILY 01/22/22 [History] Acetaminophen Tab [Tylenol] 650 mg PO Q6HR PRN tab 01/24/22 [Rx] Azithromycin [Zithromax] 500 mg PO DAILY 5 Days #5 tab 01/24/22 [Rx] Ipratropium-Albuterol Nebulize [Duoneb 0.5 mg-3 mg/3 ml Soln] 3 ml INHALATION QID #360 ml 01/24/22 [Rx] cefUROXime axetiL [Ceftin] 500 mg PO BID 5 Days #10 tab 01/24/22 [Rx] Follow up Appointment(s)/Referral(s): Vinita Nicholson III, MD [Primary Care Provider] - 1-2 days (OFFICE WILL CONTACT YOU WITH APPOINTMENT DATE/TIME EITHER TODAY OR TOMORROW.) [facility] [NON-STAFF] - As Needed (Nebulizer and home oxygen ) Florencio Wiseman DO [Doctor of Osteopathic Medicine] - 02/23/22 9:00 am Ambulatory/Diagnostic Orders: Complete Blood Count w/diff [LAB.AMB] Time Frame: 3 Days, Location: None Selected Patient Instructions/Handouts: Cefuroxime (By mouth), Azithromycin (By mouth), Using Oxygen at Home (DC), How to Use a Nebulizer (DC), Pneumonia (DC) Activity/Diet/Wound Care/Special Instructions: Activity Limited until follow-up Continue taking medications as prescribed until finished Follow-up primary care provider on discharge Follow-up with pulmonary in the next 2-3 weeks Continue with breathing inhalational treatments 4 times daily and as needed Recommend repeat labs of CBC and BMP in the next 2-3 days Recommend continue using incentive spirometer at least 10 times every hour while awake Continue current diet Discharge Disposition: HOME SELF-CARE
== END 2022-01-24 16:58 | disposition home or self-care (01) | DRG 177 ==
LOC: EC 10:29 → 4SSUR 12:58
PROVIDERS: ADMIT Hospitalist; ATTEND Hospitalist
DX: U07.1 COVID-19 (principal); J12.82 Pneumonia due to coronavirus disease 2019; J18.9 Pneumonia, unspecified organism; J96.01 Acute respiratory failure with hypoxia; E87.1 Hypo-osmolality and hyponatremia; J44.0 Chronic obstructive pulmonary disease with (acute) lower respiratory infection; I10 Essential (primary) hypertension; E78.5 Hyperlipidemia, unspecified; M19.90 Unspecified osteoarthritis, unspecified site; Z90.49 Acquired absence of other specified parts of digestive tract; Z79.899 Other long term (current) drug therapy; Z87.19 Personal history of other diseases of the digestive system; Z80.7 Family history of other malignant neoplasms of lymphoid, hematopoietic and related tissues; Z80.8 Family history of malignant neoplasm of other organs or systems; Z86.010 Personal history of colon polyps
CPT/HCPCS: 36415; 71046; 80048; 80053; 83735; 83880; 84145; 85025; 85610; 85730; 87040; 87070; 87205; 87635; 93005; 94760; 96361; 96374; 96375; 99285

== ENCOUNTER → 2023-05-07 | Outpatient (CLI) | payer BC, MEDICARE ==
--- NOTE | 2023-05-07 13:47 | CA ---
Stress Echo Report Dustin Olguin Age: 67 Gender: M : 1955 Exam Date: 05/07/2023 09:34 Exam Location: [facility] Ht (in): 62 Wt (lb): 198 Ordering Physician: Frieda Hermosillo MD Referring Physician: Kasey Naranjo Architect In Training: Marion Nava RDCS Technologist Procedure CPT: Indication: R55 SYNCOPE AND COLLAPSE ICD-9 Codes: Rhythm: Patient History: PALP, HTN, CHOL, FAMILY HX, CATH, Cardiac Medications: BLOOD PRESSURE PILL, CHOLESTEROL PILL, AND WATER PILL Medications in past 24 hours: Contrast: N/A Stress Results Protocol: Ruy Total dose(mL): Exercise Duration (min:sec): 9:[address] Depression (mm): Angina Score: Cedeño Score: METS: 10.3 Resting HR: 71 Resting BP: 124 / 66 Peak HR: 138 Peak BP: 172 / 98 Max Predicted HR: 155 89 % Max Predicted HR Target HR: 132 Double Product: [id number] Stress Summary: BP Response: Reason for Termination: Reached target heart rate or work-load, Maximal effort/unable to continue Cardiac Symptoms: ECG Analysis Resting ECG: Stress ECG: Arrhythmia: Echo Analysis Resting Echo: Peak Echo Analysis: MEASUREMENTS (Male/Female) Normal Values CONCLUSIONS No ECG or echocardiographic evidence for ischemia Dr. Jorge Hamm MD (Electronically Signed) Final Date: 07 May 2023 13:46
== END | disposition home or self-care (01) ==
LOC: RADNMMAIN 09:11
PROVIDERS: ATTEND Family Medicine
DX: R55 Syncope and collapse (principal); R00.2 Palpitations; R60.0 Localized edema; R01.1 Cardiac murmur, unspecified; I10 Essential (primary) hypertension; E78.00 Pure hypercholesterolemia, unspecified
CPT/HCPCS: 93351

== ENCOUNTER 2024-06-08 09:49 | Observation (INO) | payer BC, MEDICARE ==
[2024-06-08 10:34] LABS: Basophils # (A) 0.1 k/uL (0-0.2); Basophils % (A) 1 %; Eosinophils # (A) 0.8 k/uL (0-0.7); Eosinophils % (A) 7 %; HCT 45.5 % (39.0-53.0); HGB 14.9 gm/dL (13.0-17.5); Lymphocytes # (A) 1.5 k/uL (1.0-4.8); Lymphocytes % (A) 13 %; MCH 28.8 pg (25.0-35.0); MCHC 32.7 g/dL (31.0-37.0); MCV 88.1 fL (80.0-100.0); Mean Platelet Volume 6.6; Monocytes # (A) 0.7 k/uL (0-1.0); Monocytes % (A) 6 %; Neutrophils # (A) 8.2 k/uL (1.3-7.7); Neutrophils % (A) 72 %; Platelet Count 350 k/uL (150-450); RBC 5.17 m/uL (4.30-5.90); RDW 14.1 % (11.5-15.5); WBC 11.5 k/uL (3.8-10.6)
--- NOTE | 2024-06-08 10:45 | XR ---
EXAMINATION TYPE: XR chest 2V DATE OF EXAM: 06/08/2024 10:34 AM COMPARISON: 01/22/2022 CLINICAL INDICATION: Male, 68 years old with history of Chest Pain, patient felt faint earlier TECHNIQUE: XR chest 2V view(s) obtained. FINDINGS: The heart size is normal. The pulmonary vasculature is normal. The lungs are clear. IMPRESSION: 1. No acute pulmonary process. [facility], , 06/08/2024 10:42 AM
[2024-06-08 10:47] LABS: ALT 30 U/L (4-49); AST 31 U/L (17-59); African American GFR (CKD) >90 (>60 ml/min/1.73 sqM); Albumin 4.5 g/dL (3.5-5.0); Alkaline Phosphatase 100 U/L (38-126); Anion Gap 12 mmol/L; Blood Urea Nitrogen 19 mg/dL (9-20); Calcium 10.4 mg/dL (8.4-10.2); Carbon Dioxide 25 mmol/L (22-30); Chloride 101 mmol/L (98-107); Glucose 106 mg/dL (74-99); Magnesium 2.2 mg/dL (1.6-2.3); Non-African American GFR(CKD) >90 (>60 ml/min/1.73 sqM); Potassium 4.1 mmol/L (3.5-5.1); Sodium 138 mmol/L (137-145); Total Bilirubin 0.5 mg/dL (0.2-1.3); Total Protein 7.2 g/dL (6.3-8.2)
--- NOTE | 2024-06-08 10:50 | ED ---
Chest Pain HPI - General Source: patient, RN notes reviewed Mode of arrival: ambulatory Limitations: no limitations - History of Present Illness MD Complaint: chest pain <Brooke Lundberg - Last Filed: 06/08/24 10:47> <Ki Sheridan - Last Filed: 06/15/24 21:34> - General Chief Complaint: Chest Pain Stated Complaint: Dizziness,irreg heart rate Time Seen by Provider: 06/08/24 10:45 - History of Present Illness Initial Comments: Quick Note: This is a 68-year-old male who presents to the emergency department for chest pain. States that around 7:30 AM he was at a self checkout when he suddenly developed chest pain and pressure. States that he got dizzy and felt like he was going to pass out. The episode lasted a couple of minutes and then resolved. Denies any current symptoms. Denies any history of heart attacks or similar symptoms in the past. (Brooke Lundberg) 68-year-old male presenting with chief complaint of chest pain. Patient states that he was standing in line for checkout at the store today when he developed chest pressure and felt dizzy as though he was going to pass out. This lasted for couple minutes and then completely resolved. Patient is not currently having any symptoms. No lower extremity swelling. No headache. No URI-like symptoms. No radiation of pain to the arm or neck. No nausea vomiting or abdominal pain. (Ki Sheridan) - Related Data Home Medications Medication Instructions Recorded Confirmed amLODIPine [Norvasc] 10 mg PO HS 01/22/22 06/08/24 hydroCHLOROthiazide 25 mg PO DAILY 01/22/22 06/08/24 Atorvastatin [Lipitor] 20 mg PO HS 06/08/24 06/08/24 Allergies Allergy/AdvReac Type Severity Reaction Status Date / Time No Known Allergies Allergy Verified 06/08/24 13:24 Review of Systems ROS Other: All systems not noted in ROS Statement are negative. <Brooke Lundberg - Last Filed: 06/08/24 10:47> ROS Other: All systems not noted in ROS Statement are negative. <Ki Sheridan - Last Filed: 06/15/24 21:34> ROS Statement: Those systems with pertinent positive or pertinent negative responses have been documented in the HPI. Past Medical History Past Medical History: Hyperlipidemia, Hypertension, Osteoarthritis (OA) Additional Past Medical History / Comment(s): hx. colon polyps History of Any Multi-Drug Resistant Organisms: None Reported Past Surgical History: Bowel Resection Additional Past Surgical History / Comment(s): polyp removal and colonoscopies Past Anesthesia/Blood Transfusion Reactions: No Reported Reaction Past Psychological History: No Psychological Hx Reported Smoking Status: Never smoker Past Alcohol Use History: None Reported Past Drug Use History: None Reported - Past Family History Mother Family Medical History: Cancer Additional Family Medical History / Comment(s): Non Hodgkin Lymphoma then s/p chemo developed heart valve disease and at age 76 Father Family Medical History: No Reported History Additional Family Medical History / Comment(s): history of skin cancer. currently living at age 87 <Brooke Lundberg - Last Filed: 06/08/24 10:47> General Exam Limitations: no limitations <Brooke Lundberg - Last Filed: 06/08/24 10:47> Limitations: no limitations General appearance: alert, in no apparent distress Head exam: Present: atraumatic, normocephalic, normal inspection Eye exam: Present: normal appearance, EOMI Neck exam: Present: normal inspection. Absent: meningismus Respiratory exam: Present: normal lung sounds bilaterally. Absent: respiratory distress, wheezes, rales, rhonchi, stridor Cardiovascular Exam: Present: regular rate, normal rhythm, normal heart sounds. Absent: systolic murmur, diastolic murmur, rubs, gallop, clicks Neurological exam: Present: alert, oriented X3 Psychiatric exam: Present: normal affect, normal mood Skin exam: Present: warm, dry, normal color <Ki Sheridan - Last Filed: 06/15/24 21:34> - General Exam Comments Initial Comments: Visual Physical Exam Vital signs reviewed General: Well-appearing, nontoxic, no acute distress. Head: Normocephalic, atraumatic Eyes: PERRLA, EOMI ENT: Airway patent Chest: Nonlabored breathing Skin: No visual rash, normal skin tone Neuro: Alert and oriented 3 Musculoskeletal: No gross abnormalities (Brooke Lundberg) Course Vital Signs 06/08/24 06/08/24 06/08/24 10:09 14:18 14:48 Temperature 97.9 F Pulse Rate 73 71 68 Pulse Rate [ Sitting] Pulse Rate [ Standing] Pulse Rate [ Supine] Respiratory 18 16 16 Rate Blood Pressure 147/72 138/81 127/70 Blood Pressure [Sitting] Blood Pressure [Standing] Blood Pressure [Supine] O2 Sat by Pulse 96 99 95 Oximetry 06/08/24 06/08/24 18:21 18:22 Temperature 98.2 F Pulse Rate 75 Pulse Rate [ 84 Sitting] Pulse Rate [ 89 Standing] Pulse Rate [ 71 Supine] Respiratory 16 Rate Blood Pressure 130/74 Blood Pressure 146/78 [Sitting] Blood Pressure 125/70 [Standing] Blood Pressure 138/78 [Supine] O2 Sat by Pulse 95 Oximetry Chest Pain MDM <Brooke Lundberg - Last Filed: 06/08/24 10:47> <Ki Sheridan - Last Filed: 06/15/24 21:34> - MDM I performed the QuickNote portion of this chart. Signed Brooke Lundberg PA-C. (Brooke Lundberg) Was pt. sent in by a medical professional or institution (YONI Benites, BALE BREAKER OPERATOR, urgent care, hospital, or penitentiary...) When possible be specific @ -No Did you speak to anyone other than the patient for history (EMS, parent, family, police, friend...)? What history was obtained from this source @ - Did you review nursing and triage notes (agree or disagree)? Why? @ -I reviewed and agree with nursing and triage notes Were old charts reviewed (outside hosp., previous admission, EMS record, old EKG, old radiological studies, urgent care reports/EKG's, penitentiary records)? Report findings @ -No old charts were reviewed Differential Diagnosis (chest pain, altered mental status, abdominal pain women, abdominal pain men, vaginal bleeding, weakness, fever, dyspnea, syncope, headache, dizziness, GI bleed, back pain, seizure, CVA, palpatations, mental health, musculoskeletal)? @ -MDM Differential Chest Pain: Stable Angina, Unstable Angina, STEMI, NSTEMI Aortic Dissection, Pneumothorax, Musculoskeletal, Esophageal Spasm GERD, Cholecystitis, Pancreatitis, Zoster This is not meant to be an all-inclusive list. EKG interpreted by me (3pts min.). @ -EKG shows sinus rhythm ventricular rate 68. OK interval 163. QRS 85. QT 390. QTc 407. X-rays interpreted by me (1pt min.). @ -Chest x-ray shows no acute process CT interpreted by me (1pt min.). @ -None done U/S interpreted by me (1pt. min.). @ -None done What testing was considered but not performed or refused? (CT, X-rays, U/S, labs)? Why? @ -None What meds were considered but not given or refused? Why? @ -None Did you discuss the management of the patient with other professionals (ingrid johnson i.e. , PA, BALE BREAKER OPERATOR, lab, RT, psych nurse, social services manager, balloon dipper, teacher, adult parole officer, case therapist)? Give summary @ -I spoke with Dr. Gaspar who accepts admission Was smoking cessation discussed for >3mins.? @ -No Was critical care preformed (if so, how long)? @ -No Were there social determinants of health that impacted care today? How? (Homelessness, low income, unemployed, alcoholism, drug addiction, transportation, low edu. Level, literacy, decrease access to med. care, fpc, rehab)? @ -No Was there de-escalation of care discussed even if they declined (Discuss DNR or withdrawal of care, Hospice)? DNR status @ -No What co-morbidities impacted this encounter? (DM, HTN, Smoking, COPD, CAD, Cancer, CVA, ARF, Chemo, Hep., AIDS, mental health diagnosis, sleep apnea, morbid obesity)? @ -None Was patient admitted / discharged? Hospital course, mention meds given and route, prescriptions, significant lab abnormalities, going to OR and other pertinent info. @ -68-year-old male patient with chief complaint of chest pain and near syncopal episode. Workup was initiated by triage. Patient is later placed in a hallway bed and evaluated by myself. Negative workup, patient will be admitted for observation with trending troponins and cardiology evaluation in the morning. Patient is agreeable with this plan. I discussed this case with my attending Dr. Stoddard Undiagnosed new problem with uncertain prognosis? @ -No Drug Therapy requiring intensive monitoring for toxicity (Heparin, Nitro, Insulin, Cardizem)? @ -No Were any procedures done? @ -No Diagnosis/symptom? @ -Chest pain Acute, or Chronic, or Acute on Chronic? @ -Acute Uncomplicated (without systemic symptoms) or Complicated (systemic symptoms)? @ -Complicated Side effects of treatment? @ -No Exacerbation, Progression, or Severe Exacerbation? @ -No Poses a threat to life or bodily function? How? (Chest pain, [place], [place], pneumonia, PE, COPD, DKA, ARF, appy, cholecystitis, CVA, Diverticulitis, Homicidal, Suicidal, threat to staff... and all critical care pts) @ -Yes (Ki Sheridan) Disposition <Brooke Lundberg - Last Filed: 06/08/24 10:47> Time of Disposition: 13:23 <Ki Sheridan - Last Filed: 06/15/24 21:34> Clinical Impression: Chest pain Disposition: ADMITTED IP TO THIS HOSP Condition: Fair
[2024-06-08 11:02] LABS: Partial Thromboplastin Time 23.2 sec (22.0-30.0); Prothrombin Time 11.1 sec (10.0-12.5)
[2024-06-08] MEDS ORDERED: NALOXONE 0.4 MG/ML 1 ML VIAL IV PRN (13:20)
[2024-06-08] MEDS: SODIUM CHLORIDE 0.9% 1,000 ML IV SCH (13:46)
--- NOTE | 2024-06-08 20:52 | P.HPIM ---
History of Present Illness This is a pleasant 68 years old male with past medical history of hypertension, hyperlipidemia and osteoarthritis Presents because of chest pain and lightheadedness. Patient was going to the store and he was on the line when he started feeling lightheadedness, he held so he does not fall, he managed to go to his car and back to his house. saw him and he looks wiped out. Patient denies falling or actually falling. This was not associated with chest pain central nonradiating/10, like cake with no specific precipitating or relieving factors No other GI/GI or neurological symptoms No smoking alcohol or illicit drugs Afebrile Blood pressure controlled Has mild leukocytosis 11.5, rest of labs unremarkable EKG showing sinus rhythm at 68, nonspecific ST-T changes Chest x-ray no acute process Orthostatic vitals was checked and was negative Review of Systems Review of systems CONSTITUTIONAL: No fever, no malaise, no fatigue. HEENT: No recent visual problems or hearing problems. Denied any sore throat. CARDIOVASCULAR: No orthopnea, PND, no palpitations, no syncope. PULMONARY: No shortness of breath, no cough, no hemoptysis. GASTROINTESTINAL: No diarrhea, no nausea, no vomiting, no abdominal pain. Normoactive bowel sounds. NEUROLOGICAL: No headaches, no weakness, no numbness. HEMATOLOGICAL: Denies any bleeding or petechiae. GENITOURINARY: Denies any burning micturition, frequency, or urgency. MUSCULOSKELETAL/RHEUMATOLOGICAL: Denies any joint pain, swelling, or any muscle pain. ENDOCRINE: Denies any polyuria or polydipsia. Past Medical History Past Medical History: Hyperlipidemia, Hypertension, Osteoarthritis (OA) Additional Past Medical History / Comment(s): hx. colon polyps History of Any Multi-Drug Resistant Organisms: None Reported Past Surgical History: Bowel Resection Additional Past Surgical History / Comment(s): polyp removal and colonoscopies Past Anesthesia/Blood Transfusion Reactions: No Reported Reaction Past Psychological History: No Psychological Hx Reported Smoking Status: Never smoker Past Alcohol Use History: None Reported Past Drug Use History: None Reported - Past Family History Mother Family Medical History: Cancer Additional Family Medical History / Comment(s): Non Hodgkin Lymphoma then s/p chemo developed heart valve disease and at age 76 Father Family Medical History: No Reported History Additional Family Medical History / Comment(s): history of skin cancer. currently living at age 87 Medications and Allergies Home Medications Medication Instructions Recorded Confirmed Type amLODIPine [Norvasc] 10 mg PO HS 01/22/22 06/08/24 History hydroCHLOROthiazide 25 mg PO DAILY 01/22/22 06/08/24 History Atorvastatin [Lipitor] 20 mg PO HS 06/08/24 06/08/24 History Allergies Allergy/AdvReac Type Severity Reaction Status Date / Time No Known Allergies Allergy Verified 06/08/24 13:24 Physical Exam Vitals: Vital Signs Temp Pulse Pulse Pulse Pulse Resp BP 06/08/24 18:22 84 89 71 06/08/24 18:21 98.2 F 75 16 130/74 06/08/24 14:48 68 16 127/70 06/08/24 14:18 71 16 138/81 06/08/24 10:09 97.9 F 73 18 147/72 BP BP BP Pulse Ox 06/08/24 18:22 146/78 125/70 138/78 06/08/24 18:21 95 06/08/24 14:48 95 06/08/24 14:18 99 06/08/24 10:09 96 Intake and Output 06/08/24 06/08/24 06/08/24 06:59 14:59 22:59 Other: Weight 86.183 kg 86.183 kg -Please GENERAL: The patient is alert and oriented x3, not in any acute distress. Well developed, well nourished. Obese HEENT: Pupils are round and equally reacting to light. EOMI. No scleral icterus. No conjunctival pallor. Normocephalic, atraumatic. No pharyngeal erythema. No thyromegaly. CARDIOVASCULAR: S1 and S2 present. No murmurs, rubs, or gallops. PULMONARY: Chest is clear to auscultation, no wheezing , no crackles. ABDOMEN: Soft, nontender, nondistended, normoactive bowel sounds. No palpable organomegaly. MUSCULOSKELETAL: No joint swelling or deformity. EXTREMITIES: No cyanosis, clubbing, or pedal edema. NEUROLOGICAL: Gross neurological examination did not reveal any focal deficits. SKIN: No rashes. no petechiae. Results CBC & Chem 7: 06/08/24 10:23 06/08/24 10:23 Labs: Abnormal Lab Results - Last 24 Hours (Table) 06/08/24 06/08/24 Range/Units 10:23 10:23 WBC 11.5 H (3.8-10.6) k/uL Neutrophils # 8.2 H (1.3-7.7) k/uL Eosinophils # 0.8 H (0-0.7) k/uL Glucose 106 H (74-99) mg/dL Calcium 10.4 H (8.4-10.2) mg/dL Thrombosis Risk Factor Assmnt - Choose All That Apply Each Risk Factor Represents 2 Points: Age 61-74 years Thrombosis Risk Factor Assessment Total Risk Factor Score: 2 Thrombosis Risk Factor Assessment Level: Low Risk Assessment and Plan Assessment: Episode of chest pain and lightheadedness, currently resolved, rule out cardiac causes Hypertension Hyperlipidemia Osteoarthritis Obesity Hard of hearing Plan: Continue with serial troponin Start aspirin 81 mg Check echocardiogram Cardiology consult Orthostatic vitals were checked and were negative Further recommendation based on the clinical course GI and DVT prophylaxis Prognosis is guarded
[2024-06-08] MEDS: ASPIRIN 81 MG PO SCH (21:07)
[2024-06-08] MEDS: amLODIPine 10 MG TAB PO SCH (21:07)
[2024-06-08] MEDS: ATORVASTATIN 20 MG TAB PO SCH (21:07)
[2024-06-09 02:53] VITALS: TEMP 98
[2024-06-09] MEDS: hydroCHLOROthiazide 25 MG TAB PO SCH (08:27)
[2024-06-09 09:00] VITALS: BP 145/82; PULSE 77; RESP 16
--- NOTE | 2024-06-09 09:14 | P.CRDCN ---
History of Present Illness Consult date: 06/09/24 Consult reason: chest pain History of present illness: This is a 68-year-old male patient with past medical history of hypertension, hyperlipidemia. We have been asked to evaluate the patient for chest pain. 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 He did have an outpatient stress echocardiogram done 1 year ago in April 2023 that was ordered by his PCP was negative for ischemia. Patient presented to the hospital due to dizziness, c hest pain. He states this started about 3 weeks ago. He had an episode yesterday where he had achiness in his chest and his heart was racing and he started feeling faint and his vision blurred. He grabbed the counter to steady himself. His previous episode was about 3 weeks ago at work. He denies any chest pain at this time. Blood pressure 137/76, heart rate 61, pulse ox 97% on room air. Orthostatic vital signs are negative. -EKG: Sinus rhythm with no acute changes, nonspecific ST changes, poor R wave progression. -Chest x-ray: No acute process -Laboratory studies: WBC 11.5, hemoglobin 14.9. Electrolytes renal function and liver function test are within normal limits. Troponin negative x 3. -Home cardiac medications: Amlodipine 10 mg daily, atorvastatin 20 mg daily, hydrochlorothiazide 25 mg daily. -Stress echocardiogram performed 05/07/2023 revealed no EKG or echocardiographic evidence for ischemia. Review Of Systems: At the time of my exam: CONSTITUTIONAL: Denies fever or chills. HEENT: Denies blurred vision, vision changes, or eye pain. Denies hemoptysis CARDIOVASCULAR: Denies chest pain. Denies orthopnea. Denies PND. Denies palpitations RESPIRATORY: Denies shortness of breath. GASTROINTESTINAL: Denies abdominal pain. Denies nausea or vomiting. HEMATOLOGIC: Denies bleeding disorders. GENITOURINARY: Denies any blood in urine. SKIN: Denies puritis. Denies rash. Physical examination: Gen: This is a 68-year-old male in no acute distress. VS: reviewed HEENT: Head is atraumatic, normocephalic. Pupils equal, round. Sclerae is anicteric. NECK: Supple. No JVD. LUNGS: Clear to auscultation. No wheezes or rhonchi. No intercostal retractions. HEART: Regular rate and rhythm. No murmur. ABDOMEN: Soft No tenderness. EXTREMITIES: No pedal edema. No calf tenderness. NEUROLOGICAL: Patient is awake, alert and oriented x3. Assessment: Atypical chest pain, acute coronary syndrome ruled out Hypertension Hyperlipidemia Plan: Resume patient's home cardiac medications Obtain exercise stress test today No need to obtain echocardiogram. We can do this as an outpatient. If stress test is unremarkable, patient is cleared for discharge from cardiology and may follow-up in the office with Dr. William in 2 to 3 weeks. Thank you kindly for this consultation. Nurse practitioner note has been reviewed, I agree with documented findings and plan of care. Patient was seen and examined. Past Medical History Past Medical History: Hyperlipidemia, Hypertension, Osteoarthritis (OA) Additional Past Medical History / Comment(s): hx. colon polyps History of Any Multi-Drug Resistant Organisms: None Reported Past Surgical History: Bowel Resection Additional Past Surgical History / Comment(s): polyp removal and colonoscopies Past Anesthesia/Blood Transfusion Reactions: No Reported Reaction Past Psychological History: No Psychological Hx Reported Smoking Status: Never smoker Past Alcohol Use History: None Reported Past Drug Use History: None Reported - Past Family History Mother Family Medical History: Cancer Additional Family Medical History / Comment(s): Non Hodgkin Lymphoma then s/p chemo developed heart valve disease and at age 76 Father Family Medical History: No Reported History Additional Family Medical History / Comment(s): history of skin cancer. currently living at age 87 Medications and Allergies Home Medications Medication Instructions Recorded Confirmed Type amLODIPine [Norvasc] 10 mg PO HS 01/22/22 06/08/24 History hydroCHLOROthiazide 25 mg PO DAILY 01/22/22 06/08/24 History Atorvastatin [Lipitor] 20 mg PO HS 06/08/24 06/08/24 History Allergies Allergy/AdvReac Type Severity Reaction Status Date / Time No Known Allergies Allergy Verified 06/08/24 13:24 Physical Exam Vitals: Vital Signs Temp Pulse Pulse Pulse Pulse Resp BP 06/09/24 02:22 98.0 F 61 15 06/08/24 21:10 89 06/08/24 19:07 98.3 F 71 15 06/08/24 18:22 84 89 71 06/08/24 18:21 98.2 F 75 16 130/74 06/08/24 14:48 68 16 127/70 06/08/24 14:18 71 16 138/81 06/08/24 10:09 97.9 F 73 18 147/72 BP BP BP Pulse Ox 06/09/24 02:22 137/76 97 06/08/24 21:10 06/08/24 19:07 161/77 95 06/08/24 18:22 146/78 125/70 138/78 06/08/24 18:21 95 06/08/24 14:48 95 06/08/24 14:18 99 06/08/24 10:09 96 Intake and Output 06/08/24 06/09/24 06/09/24 22:59 06:59 14:59 Other: # Voids 2 2 Weight 86.183 kg Results 06/08/24 10:23 06/08/24 10:23 Cardiac Enzymes 06/08/24 06/08/24 06/08/24 Range/Units 10:23 10:23 14:27 AST 31 (17-59) U/L Troponin I <0.012 <0.012 (0.000-0.034) ng/mL 06/08/24 Range/Units 18:00 AST (17-59) U/L Troponin I <0.012 (0.000-0.034) ng/mL Coagulation 06/08/24 Range/Units 10:23 PT 11.1 (10.0-12.5) sec APTT 23.2 (22.0-30.0) sec CBC 06/08/24 Range/Units 10:23 WBC 11.5 H (3.8-10.6) k/uL RBC 5.17 (4.30-5.90) m/uL Hgb 14.9 (13.0-17.5) gm/dL Hct 45.5 (39.0-53.0) % Plt Count 350 (150-450) k/uL Comprehensive Metabolic Panel 06/08/24 Range/Units 10:23 Sodium 138 (137-145) mmol/L Potassium 4.1 (3.5-5.1) mmol/L Chloride 101 (98-107) mmol/L Carbon Dioxide 25 (22-30) mmol/L BUN 19 (9-20) mg/dL Creatinine 0.87 (0.66-1.25) mg/dL Glucose 106 H (74-99) mg/dL Calcium 10.4 H (8.4-10.2) mg/dL AST 31 (17-59) U/L ALT 30 (4-49) U/L Alkaline Phosphatase 100 (38-126) U/L Total Protein 7.2 (6.3-8.2) g/dL Albumin 4.5 (3.5-5.0) g/dL Current Medications Generic Name Dose Route Start Last Admin Trade Name Freq PRN Reason Stop Dose Admin Amlodipine Besylate 10 mg 06/08/24 21:00 06/08/24 21:07 Amlodipine 10 Mg Tab PO 10 mg HS CAROLA Administration Aspirin 81 mg 06/08/24 21:00 06/08/24 21:07 Aspirin 81 Mg PO 81 mg DAILY CAROLA Administration Atorvastatin Calcium 20 mg 06/08/24 21:00 06/08/24 21:07 Atorvastatin 20 Mg Tab PO 20 mg HS CAROLA Administration Hydrochlorothiazide 25 mg 06/09/24 09:00 Hydrochlorothiazide 25 Mg Tab PO DAILY CAROLA Sodium Chloride 1,000 mls @ 75 mls/hr 06/08/24 13:30 06/09/24 06:26 Saline 0.9% IV Not Given .[id number] CAROLA Naloxone HCl 0.2 mg 06/08/24 13:20 Naloxone 0.4 Mg/Ml 1 Ml Vial IV Q2M PRN Opioid Reversal Intake and Output 06/08/24 06/09/24 06/09/24 22:59 06:59 14:59 Other: # Voids 2 2 Weight 86.183 kg 06/08/24 10:23 06/08/24 10:23
[2024-06-09 09:26] LABS: BUN/Creat Ratio 17.56 Ratio (12.00-20.00); Blood Urea Nitrogen 15.8 mg/dL (9.0-27.0); Calcium 9.4 mg/dL (8.7-10.3); Carbon Dioxide 23.4 mmol/L (21.6-31.8); Chloride 104 mmol/L (96-109); Chol/HDL Ratio 4.23 Ratio; Glucose 110 mg/dL (70-110); LDL Cholesterol,Calculated 122.6 mg/dL (0.0-131.0); Potassium 4.2 mmol/L (3.5-5.5); Sodium 140 mmol/L (135-145)
--- NOTE | 2024-06-09 13:25 | CA ---
Exercise Stress Test Report Name: Dustin Olguin Exam Date: 06/09/2024 10:00 Exam Location: [facility] Stress Ht (in): 66 Wt (lb): 190 BSA: 1.96 Ordering Phys: Emma Cifuentes Referring Phys: HERNAN WILLIAM Technologist: Sherry Ventura Age: 68 Gender: M : 1955 Procedure CPT: Indications: Chest Pain ICD-10 Codes: Patient History: Chest pain, Shortness of breath, Hyperlipidemai and family history of heart disease. Medications: SEE CHART,,, Meds past 24 hrs: Pretest Chest Pain: STRESS TEST Ruy Protocol Exercise Duration (min:sec): 08:[address] Depressions (mm): Angina Score: Cedeño Score: Resting HR (bpm): 82 Peak HR (bpm): 139 Resting BP (mmHg): 148 / 68 Peak BP (mmHg): 207 / 74 MPHR: 154 Target HR: 131 % MPHR: 90 METS: 10.3 Total Dose: Peak Dose: Atropine: Double Product: 11040 BP Response: Stress Termination: TARGET HR REACHED/MAX EXERTION Stress Symptoms: NO SYMPTOMS Stress Summary: ECG ANALYSIS Resting ECG: Stress ECG: CONCLUSIONS Good exercise tolerance Normal electrocardiogram stress test Dr. Hernan William MD (Electronically Signed) Final Date: 09 June 2024 13:24
--- NOTE | 2024-06-09 21:18 | P.DS ---
Providers Date of admission: 06/08/24 14:24 Attending physician: Chris Gaspar MD Consults: 06/08/24 13:20 Consult Physician Urgent Consulting Provider: [facility] Consult Reason/Comments: chest pain Do you want consulting provider notified?: Yes Primary care physician: Frieda Herrera Hospital Course: Diagnoses Episode of chest pain and lightheadedness, currently resolved, rule out cardiac causes Hypertension Hyperlipidemia Osteoarthritis Obesity Hard of hearing Hospital course: This is a pleasant 68 years old male with past medical history of hypertension, hyperlipidemia and osteoarthritis Presents because of chest pain and lightheadedness. Patient was going to the store and he was on the line when he started feeling lightheadedness, he held so he does not fall, he managed to go to his car and back to his house. saw him and he looks wiped out. Patient denies falling or actually falling. This was not associated with chest pain central nonradiating/10, like cake with no specific precipitating or relieving factors Patient was admitted to the hospital, cardiology evaluation was obtained. Patient underwent stress test which came back negative for inducible ischemia and cardiology has cleared the patient for discharge Since admission patient has no more chest pain no more lightheadedness and no other new complaint. Patient and at bedside agree for patient to go home today. Problems and management plan were discussed with the patient and he verbalized understanding and acceptance Patient was found stable and can be discharged home in guarded prognosis however he needs follow-up as an outpatient. Patient was instructed to follow up with PCP Dr. Frieda herrera within one week and patient agrees Patient was instructed to follow-up with Dr. Maddox in 2 weeks Physical exam Gen: patient is a AAOx3, no distress CVS: S1-S2, RRR, no murmur Lungs: B/L CTA, no wheezing Abdomen: soft, no distention, no tenderness, positive bowel sounds Extremity: no leg edema or induration Time spent more than 35 minutes Patient Condition at Discharge: Fair Plan - Discharge Summary Discharge Rx Participant: No New Discharge Prescriptions: Continue amLODIPine [Norvasc] 10 mg PO HS Atorvastatin [Lipitor] 20 mg PO HS hydroCHLOROthiazide 25 mg PO DAILY Discharge Medication List amLODIPine [Norvasc] 10 mg PO HS 01/22/22 [History] hydroCHLOROthiazide 25 mg PO DAILY 01/22/22 [History] Atorvastatin [Lipitor] 20 mg PO HS 06/08/24 [History] Follow up Appointment(s)/Referral(s): Hernan William MD [STAFF PHYSICIAN] - 2 Weeks (Office will call with appointment date and time.) Frieda Herrera MD [Primary Care Provider] - 1-2 days Activity/Diet/Wound Care/Special Instructions: Heart healthy diet activity is restricted till you see your doctor Discharge Disposition: HOME SELF-CARE
== END 2024-06-09 14:07 | disposition home or self-care (01) ==
LOC: EC 09:49 → 6NMEDSUR 14:24
PROVIDERS: ADMIT Internal Medicine; ATTEND Internal Medicine
DX: R07.89 Other chest pain (principal); R55 Syncope and collapse; I10 Essential (primary) hypertension; E78.5 Hyperlipidemia, unspecified; M19.90 Unspecified osteoarthritis, unspecified site; D72.829 Elevated white blood cell count, unspecified; E66.9 Obesity, unspecified; Z68.30 Body mass index [BMI] 30.0-30.9, adult; H91.90 Unspecified hearing loss, unspecified ear; Z79.899 Other long term (current) drug therapy
CPT/HCPCS: 96361 ×3; 96360; 99285; 36415; 93005 ×2; 93017; 80061; 80053; 80048; 83735; 84484; 85025; 85610; 85730; 71046; G0378 ×2